=== PATIENT | female | born 1950 | race Caucasian/White ===

== ENCOUNTER 2020-06-08 10:42 | Outpatient (CLI) | payer BC | END 2020-06-08 10:43 | disposition home or self-care (01) | LOC: CSHRAD 10:42 | PROVIDERS: ATTEND Internal Medicine Hematology & Oncology | DX: G89.11 Acute pain due to trauma (principal); W19.XXXA Unspecified fall, initial encounter; M47.816 Spondylosis without myelopathy or radiculopathy, lumbar region | CPT/HCPCS: 72040; 72072; 72100; 72170 ==

== ENCOUNTER 2020-06-27 08:56 | Outpatient (CLI) | payer BC | END 2020-06-27 08:57 | disposition home or self-care (01) | LOC: CSHMRI 08:56 | PROVIDERS: ATTEND Internal Medicine Hematology & Oncology | DX: M54.5 Low back pain (principal); C18.2 Malignant neoplasm of ascending colon; W19.XXXA Unspecified fall, initial encounter | CPT/HCPCS: 72158 ==

== ENCOUNTER 2020-07-04 09:34 | Outpatient (CLI) | payer BC | END 2020-07-04 09:35 | disposition home or self-care (01) | LOC: CSHNM 09:34 | PROVIDERS: ATTEND Internal Medicine Hematology & Oncology | DX: C79.51 Secondary malignant neoplasm of bone (principal); R94.8 Abnormal results of function studies of other organs and systems | CPT/HCPCS: 78306; A9503 ==